=== PATIENT | male | born 1970 | race Two or more races ===

== ENCOUNTER → 2018-02-17 | Outpatient (CLI) | payer OTHER | END | disposition home or self-care (01) | LOC: HKI 13:04 | DX: Z09 Encounter for follow-up examination after completed treatment for conditions other than malignant neoplasm (principal); M25.562 Pain in left knee | CPT/HCPCS: G0463 ==

== ENCOUNTER 2018-02-18 05:23 | Day surgery (SDC) | payer OTHER ==
[2018-02-18] MEDS ORDERED: CEFAZOLIN 2 GM/50 ML (PMX) 50 ML IVPB (06:00)
[2018-02-18] MEDS: LANSOPRAZOLE 30 MG CAP PO (06:06)
[2018-02-18] MEDS: DEXAMETHASONE 4 MG/ML 1 ML INJ IV (06:07)
[2018-02-18] MEDS: oxyCODONE (CR) 10 MG TAB [oxyCONTIN] PO (06:07)
[2018-02-18] MEDS: ONDANSETRON 4 MG INJ IV (06:07)
[2018-02-18] MEDS: ACETAMINOPHEN 1000MG/100ML IV 100 ML IVPB (06:07)
[2018-02-18] MEDS: LACTATED RINGER'S 1,000 ML IV* (06:08)
[2018-02-18] MEDS ORDERED: CEFAZOLIN 1 GM INJ (07:27)
[2018-02-18] MEDS ORDERED: LIDOCAINE 2% (SDV) 5 ML INJ (07:27)
[2018-02-18] MEDS ORDERED: PROPOFOL 20 ML (07:27)
[2018-02-18] MEDS ORDERED: ONDANSETRON 4 MG INJ (07:28)
[2018-02-18] MEDS ORDERED: MEPERIDINE 100 MG INJ (07:28)
[2018-02-18] MEDS ORDERED: ONDANSETRON 4 MG INJ IV ×2 (08:00→09:00)
[2018-02-18] MEDS ORDERED: HYDROCODONE/APAP (5/325) TAB PO ×2 (08:00)
[2018-02-18] MEDS: TRIAMCINOLONE ACET 40 MG/ML INJ (08:02)
[2018-02-18] MEDS: LIDOCAINE 1% (MPF) 30 ML INJ (08:02)
[2018-02-18] MEDS ORDERED: DIPHENHYDRAMINE 50 MG INJ IV (09:00)
[2018-02-18] MEDS ORDERED: OXYCODONE/ACETAMINOPHEN (5/325) TAB PO ×2 (09:00)
[2018-02-18] MEDS ORDERED: MIDAZOLAM 1 MG/ML 2 ML INJ IV (09:00)
[2018-02-18] MEDS ORDERED: EPHEDrine SULFATE 50 MG/5 ML SYG IV (09:00)
[2018-02-18] MEDS ORDERED: LABETALOL HCL 20MG INJ IV (09:00)
[2018-02-18] MEDS ORDERED: FENTAnyl 50 MCG/ML VIAL IV ×2 (09:00)
[2018-02-18] MEDS ORDERED: MEPERIDINE 25 MG INJ IV (09:00)
[2018-02-18] MEDS ORDERED: METOCLOPRAMIDE 10 MG INJ IV (09:00)
[2018-02-18] MEDS ORDERED: hydrALAzine 20 MG INJ IV (09:00)
[2018-02-18] MEDS: FENTAnyl 50 MCG/ML VIAL IV (09:05)
== END 2018-02-18 11:00 | disposition home or self-care (01) ==
LOC: SDS 05:23
DX: S83.242A Other tear of medial meniscus, current injury, left knee, initial encounter (principal); I47.1 Supraventricular tachycardia; I10 Essential (primary) hypertension; E78.5 Hyperlipidemia, unspecified; E66.01 Morbid (severe) obesity due to excess calories; X58.XXXA Exposure to other specified factors, initial encounter; Y93.89 Activity, other specified; Y92.89 Other specified places as the place of occurrence of the external cause; Y99.8 Other external cause status
CPT/HCPCS: 29881

== ENCOUNTER → 2018-03-03 | Outpatient (CLI) | payer OTHER | END | disposition home or self-care (01) | LOC: HKI 14:45 | DX: Z47.1 Aftercare following joint replacement surgery (principal); Z96.652 Presence of left artificial knee joint ==

== ENCOUNTER → 2018-03-20 | Outpatient (CLI) | payer OTHER | END | disposition home or self-care (01) | LOC: HKI 08:21 | DX: Z47.89 Encounter for other orthopedic aftercare (principal); M25.561 Pain in right knee | CPT/HCPCS: G0463 ==

== ENCOUNTER → 2018-04-03 | Outpatient (CLI) | payer OTHER | END | disposition home or self-care (01) | LOC: HKI 13:48 | DX: M23.203 Derangement of unspecified medial meniscus due to old tear or injury, right knee (principal) | CPT/HCPCS: 20610 ==